=== PATIENT | male | born 1985 | race American Indian/Alaskan Native ===

== ENCOUNTER 2018-11-22 09:53 | Emergency (ER) | payer OTHER ==
[~2018-11-22] VITALS: Ht 170.2 cm; Wt 102.1 kg
[2018-11-22] MEDS ORDERED: Norco 5-325 Ta1 EACH PO (11:44)
[2018-11-22] MEDS ORDERED: KETO10 PO (11:44)
== END 2018-11-22 11:53 | disposition home or self-care (01) ==
LOC: ER 09:53
DX: M25.552 Pain in left hip (principal); W01.0XXA Fall on same level from slipping, tripping and stumbling without subsequent striking against object, initial encounter; Y99.0 Civilian activity done for income or pay
CPT/HCPCS: 72220; 73502; 99283-25